=== PATIENT | male | born 1990 | race Caucasian/White ===

== ENCOUNTER 2019-02-26 18:35 | Inpatient (IN) | payer MEDICAID ==
[~2019-02-26] VITALS: Ht 193 cm; Wt 111.6 kg
--- NOTE | 2019-02-26 18:50 | NUR ---
BIB SELF WITH GIRLFRIEND. AAOX4. NAD, BREATHING EVEN AND UNLABORED. AMBULATORY. C/O RLQ PAIN X 4 HOURS AGO. PAIN IS NOT PRESENT WHEN IN STATION [place] POSITION BUT GETS AGGREVATED WITH MOVENT AND RATE THE PAIN AT 2/10. PT REPORTS BEING NAUSEOUS. TO ER BED 4. MD AT BEDSIDE FOR EVAL. AWAITING ORDERS.
--- NOTE | 2019-02-26 18:55 | NUR ---
IV LINE OBTAINED ON R AC 18G. BLOOD DRAWN AND SENT TO LAB.
[2019-02-26] MEDS ORDERED: IV NS 0.9% 1,000 ML BAG IV ONE (19:00)
--- NOTE | 2019-02-26 19:05 | NUR ---
URINE COLLECTED. SENT OT LAB
[2019-02-26 19:13] LABS: BASOPHILS % (AUTO) 0.3 % (0.0-2.0); EOSINOPHILS % (AUTO) 0.4 % (0.0-6.0); HEMATOCRIT 44 % (39-51); HEMOGLOBIN 15.2 g/dL (13.5-17.5); LYMPHOCYTES # (AUTO) 1.3 /CMM (0.8-4.8); LYMPHOCYTES % (AUTO) 10.8 % (20.0-44.0); MEAN CORPUSCULAR HGB CONC 34 g/dl (31.0-36.0); MEAN CORPUSCULAR VOLUME 93 fL (80-96); MONOCYTES # (AUTO) 0.9 /CMM (0.1-1.30); MONOCYTES % (AUTO) 7.3 % (2.0-12.0); NEUTROPHILS # (AUTO) 10.1 /CMM (1.8-8.9); NEUTROPHILS % (AUTO) 81.2 % (43.0-81.0); PLATELET COUNT (AUTO) 247 /CMM (150-450); RED BLOOD CELL COUNT(AUTO) 4.79 MIL/uL (4.5-6.0); WHITE BLOOD COUNT (AUTO) 12.5 K/uL (4.3-11.0)
[2019-02-26 19:15] LABS: APPEARANCE,URINE Clear (CLEAR); BILIRUBIN,URINE Negative (NEGATIVE); BLOOD, URINE Negative Ery/uL (NEGATIVE); COLOR,URINE Yellow (YELLOW); KETONES,URINE 15 (NEGATIVE); LEUKOCYTE ESTERASE ,URINE Negative (NEGATIVE); NITRITE, URINE Negative (NEGATIVE); PROTEIN,URINE Trace mg/dl (NEGATIVE); UGLUCOSE Negative (NEGATIVE); UROBILINOGEN,URINE 0.2 EU/dL (0.2)
[2019-02-26] MEDS ORDERED: CT SWABBABLE VALVE TRANS SET 1 EA INFUS.SET MC ONE (19:15)
[2019-02-26] MEDS ORDERED: IV NS 0.9% 250 ML IV ONE (19:15)
[2019-02-26] MEDS ORDERED: IOHEXOL-300 100 ML VIAL IV ONE (19:15)
[2019-02-26 19:20] LABS: CALCIUM, SERUM 9.2 mg/dL (8.5-10.1); CREATININE 0.9 mg/dL (0.6-1.3); POTASSIUM 3.3 mmol/L (3.5-5.1)
[2019-02-26 19:26] LABS: ALBUMIN 4.6 g/dL (3.4-5.0); BILIRUBIN,DIRECT 0.1 mg/dL (0.0-0.2); BILIRUBIN,TOTAL 0.6 mg/dL (0.2-1.0); TOTAL PROTEIN, SERUM 7.7 g/dL (6.4-8.2)
[2019-02-26 19:28] LABS: BACTERIA,URINE Few /HPF (None Seen); MUCUS,URINE Many /LPF (None Seen); RBC,URINE 0-2 /HPF (0-2); SQUAMOUS EPITHELIAL CELL,UR Few /HPF (None Seen); WBC,URINE 0-2 /HPF (0-3)
--- NOTE | 2019-02-26 20:10 | NUR ---
BACK FROM RADIOLOGY
--- NOTE | 2019-02-26 20:58 | NUR ---
[facility] WAS CALLED. BINDERY MACHINE FEEDER OFFBEARER WAS PAGED
--- NOTE | 2019-02-26 22:09 | NUR ---
[facility] WAS CALLED. ONLINE PUBLISHER WAS PAGED.
--- NOTE | 2019-02-26 22:14 | NUR ---
CALLED HOUSE SUP FOR MS BED
--- NOTE | 2019-02-26 22:15 | NUR ---
MS BED 313-2 GIVEN
[2019-02-26] MEDS ORDERED: PIPERACILLIN /TAZOBACTAM 3.375 G in IV D5W 50 ML IV ONE (22:30)
--- NOTE | 2019-02-26 22:34 | NUR ---
REPORT GIVEN TO SHANE PURVIS FOR ADALBERTO. PT GOING TO 314-2
--- NOTE | 2019-02-26 22:37 | NUR ---
PT TRANSPORT TO UNIT WITH EMT AT BEDSIDE. PT IS STABLE FOR TRANSPORT. NAD, BREATHING EVEN AND UNLABORED.
[2019-02-26 22:45] VITALS: BP 128/86
--- NOTE | 2019-02-26 22:50 | NUR ---
MS/RN NOTES RECEIVED NEW ADMITTED PATIENT IS A 28 YO MALE WITH COMPLAIN OF ABDOMINAL PAIN ON RLG, CT RESULT APPENDECITIS, ALERT, ORIENTED X4, ABLE TO VERBALIZE NEEDS, FAMILY INVOLVE, MD ANDIAN ADMITTING DR, NO PAST MEDICAL HISTORY, DENIES PAIN AT THIS TIME, SURGERY BY DR. QUINN TOMORROW, ON NPO STATUS, AMBNULATORYM RIGHT AC GAUGE 18 PATETNT, VITAL SIGNS WITHIN NORMAL RANGE, TO ADMINISTER 30 MEQ POTASSIUM FOR LEVEL 3.3 LEVEL.MD ORDER, ROOM ORIENTATION DONE, BELONGINGS CHECK, BED LOCKED, CALL LIGHTS WITHIN REACH, WILL MONITOR FOR ANY CHANGES.
[2019-02-26] MEDS ORDERED: PIPERACILLIN /TAZOBACTAM 3.375 G VIAL IV ONE (23:00)
--- NOTE | 2019-02-26 23:00 | NUR ---
MS/RN NOTES RECEIVED ORDER FROM MD SHULTZ FOR POTASSIUM REPLACEMENT RESULT 3.3 LEVEL TO ADMINITER 30 MEQ POTASSIUM .WILL CARRY OUT ORDER. FOLLOW UP WITH PHARMACY.
[2019-02-26 23:01] VITALS: BP 128/86
[2019-02-26] MEDS ORDERED: MAG HYDROX/AL HYDROX/SIMETH 30 ML UDC PO PRN (23:30)
[2019-02-26] MEDS ORDERED: MAGNESIUM HYDROXIDE 30 ML UDC PO PRN (23:30)
[2019-02-26] MEDS ORDERED: ZOLPIDEM TARTRATE 5 MG TABLET PO PRN (23:30)
[2019-02-26] MEDS ORDERED: Z GUARD REMEDY 2 OZ OINT TP PRN (23:30)
[2019-02-26] MEDS ORDERED: MORPHINE SULFATE INJ 2 MG/ML DISP.SYRIN IV PRN (23:30)
[2019-02-26] MEDS ORDERED: ONDANSETRON HCL/PF 4 MG/2 ML VIAL IVP PRN (23:30)
[2019-02-26] MEDS ORDERED: HYDROCODONE/APAP 5/325MG 1 EACH TABLET PO PRN (23:30)
[2019-02-26] MEDS ORDERED: ACETAMINOPHEN 325 MG TABLET PO PRN (23:30)
[2019-02-27] VITALS (8 sets, daily range): BP systolic 114–135; BP diastolic 55–72
[2019-02-27] MEDS ORDERED: POTASSIUM CHLORIDE 10 MEQ/50 ML PREMIXED IVPB FOR PERIPHERAL LINE IV ONE ×2
[2019-02-27] MEDS ORDERED: PIPERACILLIN /TAZOBACTAM 3.375 G VIAL IV ONE (05:01)
[2019-02-27] MEDS ORDERED: PIPERACILLIN /TAZOBACTAM 3.375 G in IV D5W 50 ML IV SCH (06:00)
--- NOTE | 2019-02-27 06:00 | NUR ---
312-1T/TELE/RN NOTES PATIENT ABLE TO SLEEP DURING THE NIGHT, MONITORED FOR ANY CHANGES, KEPT COMFORTABLE, IV FLUIDS RUNNING, REQUIRE MONITORING. BED LOCKED, CALL LIGHTS WITHIN REACH. WILL ENDORSE TO AM RN FOR ADALBERTO.
[2019-02-27 06:30] LABS: BASOPHILS % (AUTO) 0.3 % (0.0-2.0); EOSINOPHILS % (AUTO) 0.9 % (0.0-6.0); HEMATOCRIT 39 % (39-51); HEMOGLOBIN 13.7 g/dL (13.5-17.5); LYMPHOCYTES # (AUTO) 1.6 /CMM (0.8-4.8); LYMPHOCYTES % (AUTO) 19.8 % (20.0-44.0); MEAN CORPUSCULAR HGB CONC 35 g/dl (31.0-36.0); MEAN CORPUSCULAR VOLUME 93 fL (80-96); MONOCYTES # (AUTO) 0.8 /CMM (0.1-1.30); MONOCYTES % (AUTO) 9.4 % (2.0-12.0); NEUTROPHILS # (AUTO) 5.6 /CMM (1.8-8.9); NEUTROPHILS % (AUTO) 69.6 % (43.0-81.0); PLATELET COUNT (AUTO) 217 /CMM (150-450); RED BLOOD CELL COUNT(AUTO) 4.17 MIL/uL (4.5-6.0); WHITE BLOOD COUNT (AUTO) 8.1 K/uL (4.3-11.0)
[2019-02-27 06:40] LABS: CALCIUM, SERUM 8.2 mg/dL (8.5-10.1); CREATININE 0.9 mg/dL (0.6-1.3); MAGNESIUM 1.9 mg/dL (1.8-2.4); PHOSPHORUS 3.4 mg/dL (2.5-4.9); POTASSIUM 3.6 mmol/L (3.5-5.1)
[2019-02-27] MEDS ORDERED: LIDOCAINE HCL/PF 1% 30 ML SDV ONE (07:05)
[2019-02-27] MEDS ORDERED: BUPIVACAINE MPF 0.5% W/EPI INJ 30 ML VIAL ONE (07:05)
[2019-02-27] MEDS ORDERED: ANESTHESIA TRAY IN PYXIS 1 EA TRAY MC ONE (07:05)
--- NOTE | 2019-02-27 07:10 | NUR ---
m/s ground support equipment mechanic: notes received pt in bed awake, a/ox4 with family at bedside. pt for surgery this morning. pt npo since midnight. all consents in chart. no c/o pain or any discomfort. instructed to call for assistance. will monitor.
--- NOTE | 2019-02-27 07:30 | NUR ---
MS/RN NOTES PATIENT WAS PICKED UP BY OR NURSE FOR SURGERY.
[2019-02-27] MEDS ORDERED: FENTANYL PF 100MCG/2ML AMPUL ONE (07:32)
[2019-02-27] MEDS ORDERED: MIDAZOLAM HCL 2 MG/2ML VIAL ONE (07:33)
[2019-02-27] MEDS ORDERED: HYDROMORPHONE INJ 2 MG/ML DISP.SYRIN ONE (07:33)
[2019-02-27] MEDS ORDERED: ROCURONIUM BROMIDE 50 MG/5 ML ONE (07:37)
--- NOTE | 2019-02-27 09:15 | NUR ---
m/s laceworker: notes received pt from recovery room with dx: s/p lap appy. noted with 3 band-aid to abdomen. no drainage/discharge noted. no c/o pain or any discomfort. iv fluid connected back on. family at bedside. place call light within reach. will continue to monitor.
[2019-02-27] MEDS ORDERED: HYDROMORPHONE 1 MG/1 ML DISP.SYRIN IV PRN (09:30)
[2019-02-27] MEDS: IV NS 0.9% 1,000 ML IV SCH ×3 (09:30→19:30)
--- NOTE | 2019-02-27 10:30 | NUR ---
m/s sales promotion coordinator: notes pt tolerated clear liquid diet. no c/o n/v/any discomfort. iv fluids infusing well. will continue to monitor.
[2019-02-27] MEDS: ACETAMINOPHEN 325 MG TABLET PO SCH ×2 (10:33→17:50)
[2019-02-27] MEDS: GABAPENTIN 300 MG CAPSULE PO SCH ×2 (10:33→17:50)
[2019-02-27] MEDS: IBUPROFEN 400 MG TABLET PO SCH ×2 (10:33→17:49)
[2019-02-27] MEDS: PIPERACILLIN /TAZOBACTAM 3.375 G in IV D5W 100 ML IV SCH ×2 (12:20→19:30)
--- NOTE | 2019-02-27 13:45 | NUR ---
m/s election judge: md visit seen and examined by beena (acnp) at this time. all questions and concerns answered by can filling and closing machine tender. mother at bedside. instructed to call for assistance.
--- NOTE | 2019-02-27 15:30 | NUR ---
m/s tile and marble installer: notes pt sounds asleep. no distress noted. call light within reach. will continue to monitor.
--- NOTE | 2019-02-27 16:09 | NUR ---
m/s knitter machine: notes pt ambulating in hallway with family nearby. no distress noted.
--- NOTE | 2019-02-27 18:08 | NUR ---
m/s plaster helper: notes pt tolerated soft diet. no c/o n/v or any abdominal discomfort. family remains at bedside. needs attended. instructed to call for assistance. will continue to monitor.
--- NOTE | 2019-02-27 19:15 | NUR ---
MS RN OPENING NOTES Received patient A/O x4, sitting on bed with family at bedside. Patient denies discomfort at this time. Abdominal surgical incision noted covered with dressing - clean, dry and intact. Encouraged patient to ambulate, patient performed 2 laps in the hallway. Kept bed low and locked, siderails up, call light within easy reach. Will continue to monitor accordingly.
--- NOTE | 2019-02-27 23:00 | NUR ---
MS RN NOTES Patient claimed difficulty falling to sleep. Offered Ambien as ordered. Will continue to monitor accordingly.
[2019-02-28] MEDS: ACETAMINOPHEN 325 MG TABLET PO SCH ×2 (02:04→10:43)
[2019-02-28] MEDS: IBUPROFEN 400 MG TABLET PO SCH ×2 (02:05→10:42)
[2019-02-28] MEDS: GABAPENTIN 300 MG CAPSULE PO SCH ×2 (02:05→10:42)
[2019-02-28] MEDS: PIPERACILLIN /TAZOBACTAM 3.375 G in IV D5W 100 ML IV SCH (03:26)
[2019-02-28] MEDS: IV NS 0.9% 1,000 ML IV SCH (05:31)
--- NOTE | 2019-02-28 06:18 | NUR ---
MS RN CLOSING NOTES Patient was noted asleep from midnight to around 5am. No complaints of pain made, no discomfort noted. Abdominal incision from S/P laparoscopic appendectomy day 1 remained intact, clean and dry. Patient was able to ambulate within the hallway within the shift. All due meds given as ordered, no ASE noted. All nursing needs attended. Call light within easy reach. Endorsed to the next shift.
[2019-02-28 06:48] LABS: BASOPHILS % (AUTO) 0.1 % (0.0-2.0); EOSINOPHILS % (AUTO) 0.2 % (0.0-6.0); HEMATOCRIT 38 % (39-51); HEMOGLOBIN 13.4 g/dL (13.5-17.5); LYMPHOCYTES # (AUTO) 1.5 /CMM (0.8-4.8); MEAN CORPUSCULAR HGB CONC 35 g/dl (31.0-36.0); MEAN CORPUSCULAR VOLUME 93 fL (80-96); MONOCYTES # (AUTO) 0.6 /CMM (0.1-1.30); MONOCYTES % (AUTO) 7.5 % (2.0-12.0); NEUTROPHILS # (AUTO) 5.2 /CMM (1.8-8.9); NEUTROPHILS % (AUTO) 71.2 % (43.0-81.0); PLATELET COUNT (AUTO) 214 /CMM (150-450); RED BLOOD CELL COUNT(AUTO) 4.13 MIL/uL (4.5-6.0); WHITE BLOOD COUNT (AUTO) 7.3 K/uL (4.3-11.0)
[2019-02-28 06:54] LABS: ALBUMIN 3.5 g/dL (3.4-5.0); BILIRUBIN,TOTAL 0.5 mg/dL (0.2-1.0); CALCIUM, SERUM 8.8 mg/dL (8.5-10.1); CREATININE 0.9 mg/dL (0.6-1.3); MAGNESIUM 2.1 mg/dL (1.8-2.4); PHOSPHORUS 3.5 mg/dL (2.5-4.9); POTASSIUM 4.3 mmol/L (3.5-5.1); TOTAL PROTEIN, SERUM 6.4 g/dL (6.4-8.2)
[2019-02-28 08:00] VITALS: BP 116/71
[2019-02-28] MEDS ORDERED: IV NS 0.9% 1,000 ML IV PRN (09:32)
--- NOTE | 2019-02-28 11:10 | NUR ---
MS ASSOCIATE AUTOMATION ENGINEER NOTES PT DISCHARGED TO HOME WITH MOTHER/GIRLFRIEND ACCOMPANYING. IV REMOVED. ID BAND REMOVED. DISCHARGE INSTRUCTIONS/PRESCRIPTION GIVEN. PER DR MOMIN, PT DOES NOT NEED ANYTHING STRONGER THAN EXTRA STRENGTH TYLENOL FOR PAIN. DR QUINN ROUNDED WITH PATIENT. ALL NEEDS ATTENDED TO. BELONGINGS IN HAND. PT INSISTED ON WALKING OFF UNIT.
== END 2019-02-28 11:30 | disposition home or self-care (01) | DRG 234 ==
LOC: ER 18:37 → MED 22:18
PROVIDERS: ADMIT Family Medicine; ATTEND Internal Medicine
PROC: 0DTJ4ZZ Resection of Appendix, Percutaneous Endoscopic Approach (ICD-10-PCS; principal; 2019-02-27)
DX: K35.80 Unspecified acute appendicitis (principal); D18.03 Hemangioma of intra-abdominal structures; E66.9 Obesity, unspecified; E87.6 Hypokalemia; R73.9 Hyperglycemia, unspecified; Z68.29 Body mass index [BMI] 29.0-29.9, adult; Z87.891 Personal history of nicotine dependence; Z82.49 Family history of ischemic heart disease and other diseases of the circulatory system; Z82.3 Family history of stroke
CPT/HCPCS: 36415; 80048-TC; 80053-TC; 80061-TC; 80076-TC; 81000-TC; 83690-TC; 83735-TC; 84100-TC; 85025-TC; 85730-TC; 86850-TC; 87081-TC; 88304-TC; A6402; G0378; J0690; J1100; J1170; J1200; J2250; J2405; J2543; J2704; J2710; J3010; J3480; J3490; J7030; J7050; J7060; Q9967